=== PATIENT | female | born 1995 | race American Indian/Alaskan Native ===

== ENCOUNTER 2018-02-16 03:18 | Observation (INO) | payer OTHER, SELFPAY ==
[2018-02-16] VITALS (14 sets, daily range): BP systolic 84–123; BP diastolic 49–85; PULSE 60–115; RESP 14–18; TEMP 36.2–37.2; O2SAT 95–100; BMI 24.2; BMI 23.6
--- NOTE | 2018-02-16 | APP_PTH ---
PATIENT: GENTRY RAMÍREZ LOC: MS2 U#:[id number] AGE/SX: 22/F ROOM: MS2 RE02/16/[address]: Dr. Catalino King MD : 1995 BED: 1 DIS: 02/17/2018 SPEC #: [id number] RECD: 02/16/18 13:45 STATUS: TONY REEver #: [id number] MARY: 02/16/18 00:[address]: Catalino King DEPT: SURGICAL PATHOLOGY RECD BY: Cristian Espinosa ENTERED: 02/16/18 13:45 SP TYPE: APPENDIX OT DR: No Primary Care Phys Tissues: Appendix, NOS Procedures: Surgery Specimen Level III HEADER OPERATION: Laparoscopic appendectomy PRE-OP DIAGNOSIS: Acute appendicitis TISSUE SUBMITTED: Appendix MICROSCOPIC DIAGNOSIS Appendix: Acute appendicitis and periappendicitis. SJ:cynthia 02/17/18 MICROSCOPIC DESCRIPTION Slides are reviewed. GROSS DESCRIPTION Received is one container labeled with the patient's name and designated appendix. The specimen consists of an appendix measuring 7 cm in length and up to 0.6 cm in average diameter. The attached periappendiceal adipose tissue measures up to 2 cm in width. The serosa is congested. No obvious perforation is identified. The lumen is pinpoint. No fecalith is identified. Assembly Stock Supervisor sections are submitted in one cassette. / SJ:rg 02/16/18 TC:2 [facility]: [id number]
[2018-02-16] MEDS: Ketorolac 30 MG/ML Syringe IV (04:19)
[2018-02-16 04:22] LABS: Mucous, Urine 0 SEEN /hpf (<or=2+)
[2018-02-16 04:26] LABS: Color, Urine Yellow (Yellow); Glucose, Dipstick Normal (Normal); Ketone-Dipstick 5 mg/dl (Negative); Leukocyte Esterase-Dipstick 100 /ul (Negative); Nitrite-Dipstick Negative (Negative); Occult Blood-Urine 25 /ul (Negative); Protein-Dipstick Negative (Negative); Urine Bilirubin Dipstick Negative (Negative); Urine Urobilinogen Normal (Normal)
[2018-02-16 04:28] LABS: Internal QC Validated? YES +Cl - CLEAR BKGD; Pregnancy, Urine Negative Negative
[2018-02-16 04:34] LABS: Absolute Lymphocyte Count 1.87 X10^3/ul (0.83-4.51); Absolute Neutrophil Count 12.5 X10^3/uL (2.0-7.7); Basophil# 0.01 X10^3/uL; Basophil% 0.1 % (0-1); Eosinophil# 0.09 X10^3/uL; Eosinophils% 0.6 % (0-5); Hematocrit 44.8 % (37-47); Hemoglobin 15.4 g/dl (12.0-15.0); Lymphocyte # 1.87 X10^3/ul (4.0); Lymphocyte % 12.2 % (19-41); Mean Corp Hgb Conc 34.4 g/gl (32-36); Mean Corpuscular Hgb 32.5 pg (27.0-32.0); Mean Corpuscular Volume 94.5 fL (81-99); Mean Platelet Vol. 9.8 fl (6.2-12.0); Monocyte# 0.87 X10^3/uL; Monocyte% 5.7 % (0-10); Neutrophil # 12.52 X10^3/uL (2.7-7.7); Neutrophil % 81.2 % (47-70); Platelet Count 299 K/mm3 (150-450); RBC Distribution Width CV 13.1 % (11.6-14.6); RBC Distribution Width SD 45.3 fl (35.1-43.9); Red Blood Count 4.74 M/mm3 (4.2-5.4); White Blood Count 15.4 K/mm3 (4.4-11.0)
[2018-02-16 04:41] LABS: POSITIVE COUNT NO; POSITIVE DIFFERENTIAL NO; POSITIVE MORPHOLOGY NO
[2018-02-16 04:54] LABS: AST(SGOT) 16 U/L (15-37); Alanine Aminotransfer ALT/SGPT 26 U/L (13-56); Albumin, Serum 3.8 g/dL (3.2-5.0); Alkaline Phosphatase 77 U/L (45-117); Anion Gap 11 (5-15); BUN 10 mg/dL (7-18); BUN/Creat Ratio 14.3 RATIO (10-20); Bilirubin, Direct 0.14 mg/dL (0.00-0.30); Calcium,Total 8.8 mg/dL (8.5-10.1); Chloride 107 mmol/L (98-107); EST Glomerular Filtration Rate 112 mL/min (>60); Est Glom Filt Rate - Afr Amer 135 mL/min (>60); Estimated Creatinine Clearance 100.55 ml/min; Globulin 3.5 g/dL (2.2-4.2); Glucose 90 mg/dL (74-106); Lipase 100 U/L (73-393); Potassium 3.4 mmol/L (3.5-5.1); Protein, Total 7.3 g/dL (6.4-8.2); Sodium Level 144 mmol/L (136-145)
[2018-02-16 04:59] LABS: Urine Clarity Sl Cldy (Clear); White Blood Cells 5-10 SEEN /hpf (0-5)
[2018-02-16 05:00] LABS: Bacteria 1+ /hpf (None Seen); Red Blood Cells-Urine 0-5 SEEN /hpf (0-5); Squamous Epithelial Cells - UA 5-10 SEEN /hpf (5-10)
--- NOTE | 2018-02-16 05:04 | CT_ITS ---
STUDY: CT ABDOMEN AND PELVIS WITH CONTRAST REASON FOR EXAM: Female, 22 years old. Right lower quadrant pain as per discussion with emergency room physician. Elevated white blood count. RADIATION DOSAGE (If Supplied By Facility): CTDIvol = ( 7.49 ) mGy, DLP = ( 313.93 ) mGycm TECHNIQUE: Transaxial images were obtained from the dome of the diaphragm to the symphysis pubis without oral contrast. 100 ml of Isovue 300 contrast was administered. Sagittal and coronal images were reconstructed. Individualized dose optimization techniques were used for this CT. COMPARISON: None. FINDINGS: The visualized lung bases are unremarkable. The visualized portions of the heart are within normal limits. Normal liver. Normal gallbladder and extrahepatic biliary system. Normal spleen. Normal pancreas. Normal bilateral adrenal glands. Normal right kidney. Normal left kidney. Normal visualized stomach. Normal small intestine. Normal colon. The retrocecal appendix is slightly enlarged measuring 7 mm transverse dimension well seen on axial images 82 through 85. No appreciable periappendiceal inflammatory changes. No appendicolith. No abscess. Normal abdominal aorta. Normal inferior vena cava. Normal retroperitoneum. No intra-abdominal free air. Normal urinary bladder. Uterus grossly normal. IUD centrally located within the uterus. No adnexal masses seen. Normal abdominal wall. Normal osseous structures. CT/Abdomen/Pelvis W IV Cont ONLY IMPRESSION: Slightly enlarged appendix which may represent early acute appendicitis in the proper clinical setting. No perforation. N.B. : The above information has been verbally conveyed by Alen Stevenson MD to SHELLI Riley, on 02/16/2018 06:27:43 (ET). Electronically Signed: Alen Stevenson MD at 6:31 EST , Service support ,
--- NOTE | 2018-02-16 05:12 | ED.DCSUM_ITS ---
- ER Visit Summary Date of Service: 02/16/18 Chief Complaint: [] Abdominal pain History of Present Illness: The patient is a 22 F states she has had abdominal pain for the last 7 hours. Gradual onset continuous dull pain diffuse. She had one episode of emesis. Normal bowel movement tonight. Denies C. Has intrauterine device. No home treatment. No past medical problems. Physical Examination: [] Vital signs reviewed General: Well-nourished well-developed Head: Normocephalic atraumatic Eyes: Pupils equal round and reactive to light extraocular movements intact ENT: TMs clear no hemotympanum no trauma Neck: Nontender full range of motion Cardiovascular: Regular rate rhythm no murmurs normal S1-S2 Respiratory: No distress clear to auscultation bilaterally chest nontender Abdomen: Soft mild periumbilical tenderness. No significant tenderness right lower quadrant or other quadrants. No guarding or rebound nondistended normal bowel sounds no masses Back: Nontender no CVA tenderness Extremities: Nontender active range of motion ?4 extremities no trauma Skin: Normal color no trauma Neuro alert oriented cranial nerves II through XII intact normal strength sensation reflexes Test Results: [] Emergency Department Course and Treatment: [] Given IV fluids and Toradol. Lab work showed a CBC of a white count of 15.4 with a left shift. Chemistry is normal except potassium 3.4. Liver function tests normal. Lipase normal. Urinalysis shows 5-10 white blood cells 5-10 epithelials and only 1+ bacteria. negative. On reevaluation the patient has worsening pain right lower quadrant. CT abdomen pelvis with IV contrast obtained. 7 mm enlarged appendix. Patient given Zosyn discussed with surgery. At this time I feel she has an early appendicitis Treatment Plan: [] Disposition: [] Impression: [] Appendicitis acute This note was generated with [employer] dictation software. It may contain incorrect words, spelling, and punctuation that were not noted in review of the chart prior to signing ED Disposition - Plan for ED Patient: Chief Complaint: Abd Pain Referrals: Care Physician,No Primary [Primary Care Provider] -
[2018-02-16] MEDS: 0.9% Normal Saline 1,000 ML 1000 ML IV (05:47)
--- NOTE | 2018-02-16 07:51 | PCM.HP.STD ---
Problem List (1) Acute appendicitis Status: Acute Qualifiers: Acute appendicitis type: unspecified acute appendicitis type Qualified Code(s): K35.80 - Unspecified acute appendicitis History of Present Illness Date of Admission: 02/16/18 Chief Complaint: Abdominal pain The patient is a 22 year old F who reports that last night she began having acute onset abdominal pain and did have nausea and vomiting. She denies any fever or chills. She says the pain was diffuse along her abdomen and not localized. 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 Denies: Fever HEENT: Denies: Difficulty Swallowing Cardiovascular: Denies: Chest Pain Respiratory: Denies: Cough, Shortness of Breath Gastrointestinal: Reports: Abdominal Pain, Nausea, Vomiting Genitourinary: Denies: Dysuria Musculoskeletal: Denies: Joint Tenderness Skin: Denies: Pruritis, Rash Neurological: Denies: Balance problems Psychiatric: Reports: Depression. Denies: Anxiety Hematologic/ Lymphatic: Denies: Anemia VTE Information - Inpt Only VTE Present on Admission: No VTE Mechan Device Prophylaxis: SCD's VTE Pharm Prophylaxis ordered?: No Patient Problems: Active and Suspected Problems Acute appendicitis (Acute) - Physical Exam General: Alert, Oriented x3, Cooperative, No apparent distress HEENT: Atraumatic, PERRLA, EOMI Neck: Supple, No JVD Lungs: Normal air movement Cardiovascular: Regular rate, Regular Rhythm Abdomen: Soft, Non-Distended, Tender - Diffusely tender. There is some tenderness in the right lower quadrant to deep palpation. No guarding or rebound. Psych/Mental Status: Normal Affect, Appropriate Vital Signs Temp Pulse Resp BP Pulse Ox 98.6 F 85 14 116/74 95 02/16/18 06:34 02/16/18 07:15 02/16/18 07:15 02/16/18 07:15 02/16/18 07:15 Oxygen Delivery Method Room Air Weight: 132 lb 4.438 oz Body Mass Index (BMI) 24.2 Laboratory Tests Past 24 Hrs 02/16/18 02/16/18 02/16/18 03:21 03:21 04:17 WBC 15.4 H RBC 4.74 Hgb 15.4 H Hct 44.8 MCV 94.5 MCH 32.5 H MCHC 34.4 RDW 13.1 RDW Differential 45.3 H Plt Count 299 MPV 9.8 Immature Gran % (Auto) 0.200 Neut % (Auto) 81.2 H Lymph % (Auto) 12.2 L [place] % (Auto) 5.7 Eos % (Auto) 0.6 Baso % (Auto) 0.1 Absolute Neuts (auto) 12.5 H Absolute Lymphs (auto) 1.87 Total Counted Not Reportable Sodium 144 Potassium 3.4 L Chloride 107 Carbon Dioxide 26.0 Anion Gap 11 BUN 10 Creatinine 0.70 Estim Creat Clear Calc 100.55 Est GFR (MDRD) Af Amer 135 Est GFR (MDRD) Non-Af 112 BUN/Creatinine Ratio 14.3 Glucose 90 Calcium 8.8 Total Bilirubin 0.50 Direct Bilirubin 0.14 AST 16 ALT 26 Alkaline Phosphatase 77 Total Protein 7.3 Albumin 3.8 Globulin 3.5 Lipase 100 Urine Color Urine Clarity Urine pH Ur Specific [place] Urine Protein Urine Glucose (UA) Urine Ketones Urine Occult Blood Urine Nitrite Urine Bilirubin Urine Urobilinogen Ur Leukocyte Esterase Urine RBC Urine WBC Ur Squamous Epith Cells Urine Bacteria Urine Mucus Urine Test Negative 02/16/18 04:17 WBC RBC Hgb Hct MCV MCH MCHC RDW RDW Differential Plt Count MPV Immature Gran % (Auto) Neut % (Auto) Lymph % (Auto) [place] % (Auto) Eos % (Auto) Baso % (Auto) Absolute Neuts (auto) Absolute Lymphs (auto) Total Counted Sodium Potassium Chloride Carbon Dioxide Anion Gap BUN Creatinine Estim Creat Clear Calc Est GFR (MDRD) Af Amer Est GFR (MDRD) Non-Af BUN/Creatinine Ratio Glucose Calcium Total Bilirubin Direct Bilirubin AST ALT Alkaline Phosphatase Total Protein Albumin Globulin Lipase Urine Color Yellow Urine Clarity Sl Cldy Urine pH 6.0 Ur Specific [place] 1.020 Urine Protein Negative Urine Glucose (UA) Normal Urine Ketones 5 H Urine Occult Blood 25 H Urine Nitrite Negative Urine Bilirubin Negative Urine Urobilinogen Normal Ur Leukocyte Esterase 100 H Urine RBC 0-5 SEEN Urine WBC 5-10 SEEN Ur Squamous Epith Cells 5-10 SEEN Urine Bacteria 1+ Urine Mucus 0 SEEN Urine Test Clinical Impression(s) from Imaging Studies Abdomen/Pelvis CT 02/16/18 05:04 IMPRESSION: Slightly enlarged appendix which may represent early acute appendicitis in the proper clinical setting. No perforation. N.B. : The above information has been verbally conveyed by Alen Stevenson MD to SHELLI Riley, on 02/16/2018 06:27:43 (ET). Electronically Signed: Alen Stevenson MD at 6:31 EST , Service support , Assessment/Plan All Active Problems Acute appendicitis (Acute) 22-year-old female with acute appendicitis 1. Patient has elevated white count. CT scan shows a retrocecal appendix which is prominent. This is likely appendicitis. I do note that on the CT scan the patient does have an enlarged right ovary but this was not read as abnormal on the CT scan. I do recommend laparoscopic appendectomy. 2. I explained laparoscopic appendectomy to the patient in detail. I expand the risks including but not limited to bleeding, infection, injury to surrounding organs such as the ureter, colon, small bowel. The patient understands the risks and is willing to proceed with surgery. Catalino King MD Pager: [facility] [address] [place] [address], [address] [place] [address] Office:
--- NOTE | 2018-02-16 07:54 | HP.PCM_ITS ---
Problem List (1) Acute appendicitis Status: Acute Qualifiers: Acute appendicitis type: unspecified acute appendicitis type Qualified Code(s): K35.80 - Unspecified acute appendicitis History of Present Illness Date of Admission: 02/16/18 Chief Complaint: Abdominal pain The patient is a 22 year old F who reports that last night she began having acute onset abdominal pain and did have nausea and vomiting. She denies any fever or chills. She says the pain was diffuse along her abdomen and not localized. 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 Denies: Fever HEENT: Denies: Difficulty Swallowing Cardiovascular: Denies: Chest Pain Respiratory: Denies: Cough, Shortness of Breath Gastrointestinal: Reports: Abdominal Pain, Nausea, Vomiting Genitourinary: Denies: Dysuria Musculoskeletal: Denies: Joint Tenderness Skin: Denies: Pruritis, Rash Neurological: Denies: Balance problems Psychiatric: Reports: Depression. Denies: Anxiety Hematologic/ Lymphatic: Denies: Anemia VTE Information - Inpt Only VTE Present on Admission: No VTE Mechan Device Prophylaxis: SCD's VTE Pharm Prophylaxis ordered?: No Patient Problems: Active and Suspected Problems Acute appendicitis (Acute) - Physical Exam General: Alert, Oriented x3, Cooperative, No apparent distress HEENT: Atraumatic, PERRLA, EOMI Neck: Supple, No JVD Lungs: Normal air movement Cardiovascular: Regular rate, Regular Rhythm Abdomen: Soft, Non-Distended, Tender - Diffusely tender. There is some tenderness in the right lower quadrant to deep palpation. No guarding or rebound. Psych/Mental Status: Normal Affect, Appropriate Vital Signs Temp Pulse Resp BP Pulse Ox 98.6 F 85 14 116/74 95 02/16/18 06:34 02/16/18 07:15 02/16/18 07:15 02/16/18 07:15 02/16/18 07:15 Oxygen Delivery Method Room Air Weight: 132 lb 4.438 oz Body Mass Index (BMI) 24.2 Laboratory Tests Past 24 Hrs 02/16/18 02/16/18 02/16/18 03:21 03:21 04:17 WBC 15.4 H RBC 4.74 Hgb 15.4 H Hct 44.8 MCV 94.5 MCH 32.5 H MCHC 34.4 RDW 13.1 RDW Differential 45.3 H Plt Count 299 MPV 9.8 Immature Gran % (Auto) 0.200 Neut % (Auto) 81.2 H Lymph % (Auto) 12.2 L [place] % (Auto) 5.7 Eos % (Auto) 0.6 Baso % (Auto) 0.1 Absolute Neuts (auto) 12.5 H Absolute Lymphs (auto) 1.87 Total Counted Not Reportable Sodium 144 Potassium 3.4 L Chloride 107 Carbon Dioxide 26.0 Anion Gap 11 BUN 10 Creatinine 0.70 Estim Creat Clear Calc 100.55 Est GFR (MDRD) Af Amer 135 Est GFR (MDRD) Non-Af 112 BUN/Creatinine Ratio 14.3 Glucose 90 Calcium 8.8 Total Bilirubin 0.50 Direct Bilirubin 0.14 AST 16 ALT 26 Alkaline Phosphatase 77 Total Protein 7.3 Albumin 3.8 Globulin 3.5 Lipase 100 Urine Color Urine Clarity Urine pH Ur Specific [place] Urine Protein Urine Glucose (UA) Urine Ketones Urine Occult Blood Urine Nitrite Urine Bilirubin Urine Urobilinogen Ur Leukocyte Esterase Urine RBC Urine WBC Ur Squamous Epith Cells Urine Bacteria Urine Mucus Urine Test Negative 02/16/18 04:17 WBC RBC Hgb Hct MCV MCH MCHC RDW RDW Differential Plt Count MPV Immature Gran % (Auto) Neut % (Auto) Lymph % (Auto) [place] % (Auto) Eos % (Auto) Baso % (Auto) Absolute Neuts (auto) Absolute Lymphs (auto) Total Counted Sodium Potassium Chloride Carbon Dioxide Anion Gap BUN Creatinine Estim Creat Clear Calc Est GFR (MDRD) Af Amer Est GFR (MDRD) Non-Af BUN/Creatinine Ratio Glucose Calcium Total Bilirubin Direct Bilirubin AST ALT Alkaline Phosphatase Total Protein Albumin Globulin Lipase Urine Color Yellow Urine Clarity Sl Cldy Urine pH 6.0 Ur Specific [place] 1.020 Urine Protein Negative Urine Glucose (UA) Normal Urine Ketones 5 H Urine Occult Blood 25 H Urine Nitrite Negative Urine Bilirubin Negative Urine Urobilinogen Normal Ur Leukocyte Esterase 100 H Urine RBC 0-5 SEEN Urine WBC 5-10 SEEN Ur Squamous Epith Cells 5-10 SEEN Urine Bacteria 1+ Urine Mucus 0 SEEN Urine Test Clinical Impression(s) from Imaging Studies Abdomen/Pelvis CT 02/16/18 05:04 IMPRESSION: Slightly enlarged appendix which may represent early acute appendicitis in the proper clinical setting. No perforation. N.B. : The above information has been verbally conveyed by Alen Stevenson MD to SHELLI Riley, on 02/16/2018 06:27:43 (ET). Electronically Signed: Alen Stevenson MD at 6:31 EST , Service support , Assessment/Plan All Active Problems Acute appendicitis (Acute) 22-year-old female with acute appendicitis 1. Patient has elevated white count. CT scan shows a retrocecal appendix which is prominent. This is likely appendicitis. I do note that on the CT scan the patient does have an enlarged right ovary but this was not read as abnormal on the CT scan. I do recommend laparoscopic appendectomy. 2. I explained laparoscopic appendectomy to the patient in detail. I expand the risks including but not limited to bleeding, infection, injury to surrounding organs such as the ureter, colon, small bowel. The patient understands the risks and is willing to proceed with surgery. Catalino King MD Pager: [facility] [address] [place] [address], [address] [place] [address] Office:
[2018-02-16] MEDS: Bupiv/Epi 0.5% Mpf 30 ML Vial (10:58)
--- NOTE | 2018-02-16 11:45 | PCM.OPRPT ---
Problem List (1) Acute appendicitis Status: Acute Qualifiers: Acute appendicitis type: unspecified acute appendicitis type Qualified Code(s): K35.80 - Unspecified acute appendicitis Report of Operation Date of Procedure: 02/16/18 Pre-Operative Diagnosis: Acute appendicitis Post-Operative Diagnosis: Acute appendicitis Surgery/Procedure Performed:: Laparoscopic appendectomy Description of Surgical Findings:: Inflamed appendix Specimen's removed: Appendix Description of Procedure: The patient was brought into the operating room and general anesthesia was induced. The left arm was tucked and the abdomen was prepped and draped in usual sterile fashion. A small midline incision was made superior to the umbilicus and deepened to the level of the fascia. The fascia was elevated and incised. The peritoneum was also elevated and incised. A finger sweep was performed and a balloon trocar was placed into the abdomen and inflated. The abdomen was insufflated to 15 mmHg and the camera was inserted and the abdomen was inspected for any injuries upon entering the abdomen. There were none. The patient was placed in Trendelenburg position and a 5 mm ports placed in the left lower quadrant and suprapubic areas under direct visualization. Next using atraumatic bowel graspers the appendix was identified. The appendix was grasped and elevated and an Enseal device was used to take down the mesoappendix. A stapler was used to come across the base of the appendix. The appendix was then placed in Endo Catch bag and removed through the umbilical incision. The staple line was inspected and found to be hemostatic and intact. The 2 5 mm ports are removed under direct visualization. The balloon trocar was deflated and removed and all the air was removed from the abdomen. The umbilical incision fascia was closed with an 0 Vicryl [id number] suture. The incisions were then irrigated with saline and dried. Local anesthetic was injected into the incision sites. The skin incisions were then closed with interrupted 4-0 Monocryl suture and Steri-Strips. Bandages were applied and the patient was awoken and taken to PACU in stable condition. Patient tolerated the procedure well. - Admit VTE Documentation VTE Mechan Device Prophylaxis: SCD's
[2018-02-16] MEDS: 0.9% Normal Saline 1,000 ML 100 ML IV (15:10)
--- NOTE | 2018-02-16 15:13 | NURSING ---
vital signs checked, pt tolerating diet. abd umbilical dressing with slight increase in drainage from earlier. no changes in other dressing. pt denies all pain needs at present. call light within reach.
--- NOTE | 2018-02-16 17:09 | NURSING ---
no change to abd dressing. pt voiding qs. refuses pain meds at present. discussed ambulation. denies further needs. call light within reach
[2018-02-16] MEDS: Docusate Sodium 100 MG Capsule PO (22:35)
[2018-02-17] MEDS: 0.9% Normal Saline 1,000 ML 100 ML IV (00:36)
[2018-02-17 02:58] VITALS: BP 94/52; PULSE 76; RESP 16; TEMP 36.6; O2SAT 98
--- NOTE | 2018-02-17 08:14 | DCINST_ITS ---
Discharge Diet: Light diet - advance as tolerated Discharge Activity: May Not Drive - for 3-5 days or while taking narcotic pain meds. May shower in (days): 1 Lifting Restrictions: 20 lbs for 2 weeks Call your doctor if your incision/area has: Continuous Slow Oozing, Sudden Increased Bleeding, Increased Pain/ Swelling, Increased Redness, Foul Smelling Discharge Call your doctor if you observe: Fever of 101 or Higher Suture Line Care: Avoid Pulling/Pushing, Avoid Pinching/Bending Additional Dressing/Incision Instructions:: Keep dressing clean and dry. Change or remove dressing in 2 days. Leave steri strips for 1 week. May protect with a gauze bandaid. Additional Instructions: Ibuprofen and tylenol for pain Medications to take at Discharge Sertraline HCl [Zoloft] 25 mg PO DAILY 02/16/18 Allergies/Adverse Reactions: Allergies banana Allergy (Verified 02/16/18 03:24) Anaphylaxis Primary Care Physician: Care Physician,No Primary [Primary Care Provider] - Test Results: Test results from this visit will be discussed in further detail at your follow- up appointment, if applicable. Please Follow Up With: Catalino King MD When: Please call to schedule 2 week follow up appointment. [phone]
--- NOTE | 2018-02-17 08:14 | PCM.DC.SUM ---
Discharge Date and Diagnosis - Problem List Patient Problems: Active and Suspected Problems Acute appendicitis (Acute) Date of Admission: 02/16/18 Date of Discharge: 02/17/18 - Primary Discharge Diagnosis Active and Suspected Problems Acute appendicitis (Acute) Hospital Course and Treatment Imaging Results: Clinical Impression(s) from Imaging Studies Abdomen/Pelvis CT 02/16/18 05:04 IMPRESSION: Slightly enlarged appendix which may represent early acute appendicitis in the proper clinical setting. No perforation. N.B. : The above information has been verbally conveyed by Alen Stevenson MD to SHELLI Riley, on 02/16/2018 06:27:43 (ET). Electronically Signed: Alen Stevenson MD at 6:31 EST , Service support , Operations: appendectomy Procedures: None Summary of Care Provided: The patient is a 22 year old F who presented with abdominal pain. CT revealed acute appendicitis. She was taken for laparoscopic appendectomy. She tolerated the procedure well. The following morning she was tolerating a diet and pain was well controlled. She was discharged home. Patient Problems: Active and Suspected Problems Acute appendicitis (Acute) - Physical Exam General: Alert, Oriented x3, Cooperative, No apparent distress Lungs: Normal air movement Abdomen: Soft, Non Tender, Non-Distended Vital Signs Temp Pulse Resp BP Pulse Ox 97.9 F 76 16 94/52 L 98 02/17/18 02:58 02/17/18 02:58 02/17/18 02:58 02/17/18 02:58 02/17/18 02:58 Oxygen Delivery Method Room Air Weight: 129 lb Body Mass Index (BMI) 23.6 Intake and Output for Last 24 Hours 02/15/18 02/16/18 02/17/18 23:59 23:59 23:59 Intake Total 1620 / 1620 2286 / 2286 Output Total 800 / 800 1100 / 1100 Balance 820 / 820 1186 / 1186 Discharge Diet: Light diet - advance as tolerated Discharge Activity: May Not Drive - for 3-5 days or while taking narcotic pain meds. May shower in (days): 1 Call your doctor if your incision/area has: Continuous Slow Oozing, Sudden Increased Bleeding, Increased Pain/ Swelling, Increased Redness, Foul Smelling Discharge Call your doctor if you observe: Fever of 101 or Higher Suture Line Care: Avoid Pulling/Pushing, Avoid Pinching/Bending Additional Dressing/Incision Instructions:: Keep dressing clean and dry. Change or remove dressing in 2 days. Leave steri strips for 1 week. May protect with a gauze bandaid. Home Medications: Medications to take at Discharge Sertraline HCl [Zoloft] 25 mg PO DAILY 02/16/18 Primary Care Physician: Care Physician,No Primary [Primary Care Provider] - Please Follow Up With: Catalino King MD When: Please call to schedule 2 week follow up appointment. [phone] Additional Instructions: Ibuprofen and tylenol for pain Medical Necessity - Tobacco Use Smoking Status: Never smoker Meaningful Use Info Meaningful Use Diagnoses (Choose all that apply): None applicable
[2018-02-17 08:25] VITALS: BP 96/60; PULSE 59; RESP 16; TEMP 36.7; O2SAT 99
== END 2018-02-17 08:40 | disposition home or self-care (01) ==
LOC: ED 06:59 → SDC 07:36 → MS2 08:49 → SDC 12:02
PROVIDERS: Admitting Provider Surgery; Emergency Provider Emergency Medicine; Visit Provider Surgery
PROC: 0DTJ4ZZ Resection of Appendix, Percutaneous Endoscopic Approach (ICD-10-PCS; CPT 44970; principal; 2018-02-16 08:55)
DX: K35.80 Unspecified acute appendicitis (principal)
CPT/HCPCS: 00840; 44970; 74177; 80048; 80076; 81001; 81025; 83690; 85025; 88304; 96361; 96365; 96375; 99218; 99282; J7030; Q9967; A4216; C1760; G0378; J2405